=== PATIENT | female | born 1965 | race Caucasian/White ===

== ENCOUNTER 2021-03-18 15:48 | Emergency (ER) | payer BC ==
[2021-03-18] MEDS ORDERED: GI Cocktail Oral Solution 30 ML PO ONE (16:03)
--- NOTE | 2021-03-18 16:11 | EDM.PDOC ---
ED HPI GENERAL MEDICAL PROBLEM - General Chief Complaint: General Stated Complaint: CHEST PAIN Time Seen by Provider: 03/18/21 15:48 Source of Information: Reports: Patient History Limitations: Reports: No Limitations - History of Present Illness INITIAL COMMENTS - FREE TEXT/NARRATIVE: In the emergency department complaints of chest pain. Patient was sent over here from the [facility]. Patient had told the staff there that she had chest discomfort for approximately 1 month and staff stated that they wanted to have her evaluated here. Patient states that the chest pain has been intermittent throughout the past month progressively getting worse in the last 24 to 48 hours. Patient describes the pain as a sharp shooting sensation in the midsternal area radiating to the back at times. She states that it feels like [id number]. She states that she does get nauseated at times with the chest discomfort. Patient states that she has not been able to find anything to make it feel better or worse. She describes a burning sensation that does make her become nauseated. Patient denies any coronary artery disease or recent cardiac issues. Onset: Gradual Duration: Intermittent Location: Reports: Chest Quality: Reports: Burning, Sharp Improves with: Reports: None Worsens with: Reports: None Associated Symptoms: Reports: No Other Symptoms - Related Data Allergies Allergy/AdvReac Type Severity Reaction Status Date / Time meperidine [From Demerol] Allergy Severe Hives Verified 03/18/21 16:47 adhesive Allergy Rash Verified 03/18/21 16:47 amoxicillin Allergy Other Verified 03/18/21 16:47 Home Meds: Home Meds Gabapentin [Neurontin] 300 mg PO TID 04/14/16 [History] LORazepam 1 tab PO BID PRN MDD 2 04/14/16 [History] tiZANidine HCl [Tizanidine HCl] 2 mg PO TID PRN 04/14/16 [History] Past Medical History Cardiovascular History: Reports: None Respiratory History: Reports: None Gastrointestinal History: Reports: Hemorrhoids [employer] History: Reports: Endometriosis Musculoskeletal History: Reports: Osteoarthritis Other Musculoskeletal History: OA of spine with radiculopathy, cervical region. DJD of cervical spine. tenosynvitis-wrist Neurological History: Reports: None Psychiatric History: Reports: None Endocrine/Metabolic History: Reports: None Immunologic History: Reports: None Oncologic (Cancer) History: Reports: None Dermatologic History: Reports: None - Past Surgical History Head Surgeries/Procedures: Reports: None Cardiovascular Surgical History: Reports: None Respiratory Surgical History: Reports: None GI Surgical History: Reports: Hernia Repair/Other Female Surgical History: Reports: Hysterectomy Neurological Surgical History: Reports: None Musculoskeletal Surgical History: Reports: Ganglion Cyst, Other (See Below) Oncologic Surgical History: Reports: None Dermatological Surgical History: Reports: None Social & Family History - Caffeine Use Caffeine Use: Reports: Coffee ED ROS GENERAL - Review of Systems Review Of Systems: Comprehensive ROS is negative, except as noted in HPI. Constitutional: Reports: No Symptoms HEENT: Reports: No Symptoms Respiratory: Reports: No Symptoms Endocrine: Reports: No Symptoms GI/Abdominal: Reports: No Symptoms : Reports: No Symptoms Musculoskeletal: Reports: No Symptoms Skin: Reports: No Symptoms Neurological: Reports: No Symptoms Psychiatric: Reports: No Symptoms Hematologic/Lymphatic: Reports: No Symptoms Immunologic: Reports: No Symptoms ED EXAM, GENERAL - Physical Exam Exam: See Below Exam Limited By: No Limitations General Appearance: Alert, WD/WN, No Apparent Distress Head: Atraumatic, Normocephalic Neck: Normal Inspection, Supple, Non-Tender, Full Range of Motion Respiratory/Chest: No Respiratory Distress, Lungs Clear, Normal Breath Sounds Cardiovascular: Normal Peripheral Pulses, Regular Rate, Rhythm, No Edema GI/Abdominal: Normal Bowel Sounds, Soft, Non-Tender Back Exam: Normal Inspection, Full Range of Motion Extremities: Normal Inspection, Normal Range of Motion, Non-Tender Neurological: Alert, Oriented, CN II-XII Intact Psychiatric: Normal Affect, Normal Mood Skin Exam: Warm, Dry, Intact Course - Vital Signs Last Recorded V/S: Last Vital Signs Temp 36.6 C 03/18/21 16:00 Pulse 67 03/18/21 16:00 Resp 16 03/18/21 16:00 BP 160/79 H 03/18/21 16:00 Pulse Ox 98 03/18/21 16:00 - Orders/Labs/Meds Orders: Active Orders 24 hr Category Date Time Status EKG Documentation Completion [RC] STAT Care 03/18/21 15:50 Active Labs: Laboratory Tests 03/18/21 03/18/21 Range/Units 16:14 16:14 WBC 8.3 (4.0-10.0) x10^3/uL RBC 4.46 (4.00-5.50) x10^6/uL Hgb 13.7 (12.0-16.0) g/dL Hct 40.3 (33.0-47.0) % MCV 90.4 (78.0-93.0) fL MCH 30.7 (26.0-32.0) pg MCHC 34.0 (32.0-36.0) g/dL RDW Coeff of Tarik 11.9 (10.0-15.0) % Plt Count 273 (130-400) x10^3/uL Immature Gran % (Auto) 0.10 (0.00-0.43) % Neut % (Auto) 58.4 (50.0-80.0) % Lymph % (Auto) 31.0 (25.0-50.0) % [place]one % (Auto) 8.7 (2.0-11.0) % Eos % (Auto) 1.3 (0.0-4.0) % Baso % (Auto) 0.5 (0.2-1.2) % Neut # (Auto) 4.9 (1.8-7.7) x10^3/uL Lymph # (Auto) 2.6 (1.0-4.8) x10^3/uL [place]oshone # (Auto) 0.7 (0.0-0.8) x10^3/uL Eos # (Auto) 0.1 (0.0-0.5) x10^3/uL Baso # (Auto) 0.0 (0.0-0.2) x10^3/uL Immature Gran # (Auto) 0.01 (0.00-0.07) x10^3/uL Sodium 142 (136-145) mmol/L Potassium 3.9 (3.5-5.1) mmol/L Chloride 105 (98-107) mmol/L Carbon Dioxide 28 (21-32) mmol/L Anion Gap 12.9 (5-15) mmol/L BUN 17 (7-18) mg/dL Creatinine 1.0 (0.55-1.02) mg/dL Est Cr Clr Drug Dosing TNP Estimated GFR (MDRD) 57 Glucose 94 (70-99) mg/dL Calcium 8.7 (8.5-10.1) mg/dL Corrected Calcium 9.0 (8.5-10.1) mg/dL Total Bilirubin 0.7 (0.2-1.0) mg/dL AST 15 (15-37) U/L ALT 21 (14-59) U/L Alkaline Phosphatase 62 (46-116) U/L Creatine Kinase 60 (26-192) U/L Troponin I High Sens 5 (<=51) ng/L Total Protein 6.7 (6.4-8.2) g/dL Albumin 3.6 (3.4-5.0) g/dL Globulin 3.1 Albumin/Globulin Ratio 1.16 Meds: Medications Discontinued Medications Generic Name Dose Route Start Last Admin Trade Name Freq PRN Reason Stop Dose Admin Al Hydroxide/Mg Hydroxide 30 ml 03/18/21 16:03 03/18/21 16:10 Gi Cocktail Oral Solution 30 Ml PO 03/18/21 16:04 30 ml ONETIME ONE Administration Departure - Departure Time of Disposition: 17:00 Disposition: Home, Self-Care 01 Condition: Good Clinical Impression: Atypical angina - Discharge Information *PRESCRIPTION DRUG MONITORING PROGRAM REVIEWED*: Not Applicable *COPY OF PRESCRIPTION DRUG MONITORING REPORT IN PATIENT DEEDEE: Not Applicable Referrals: Vicente Garcia PA-C [Primary Care Provider] - Forms: ED Department Discharge Additional Instructions: 1. rest 2. increase your water intake 3. Continue all at home medications 4. Activity and diet as tolerated 5. Can take over the counter Tylenol for any pain or discomfort 6. Follow up with PCP if symptoms continue, return, or progress 7. Call with any questions or concerns Sepsis Event Note (ED) - Focused Exam Vital Signs: Vital Signs Temp Pulse Resp BP Pulse Ox 03/18/21 16:00 36.6 C 67 16 160/79 H 98 - My Orders Last 24 Hours: My Active Orders 03/18/21 15:50 EKG Documentation Completion [RC] STAT - Assessment/Plan Last 24 Hours: My Active Orders 03/18/21 15:50 EKG Documentation Completion [RC] STAT Assessment:: 1. chest pain Plan: 1. Labs completed in the ER. Results reviewed with the patient 2. GI cocktail given in the ER 3. Chest xray completed in ER. Results reviewed with the patient 4. EKG was completed in ER. Results reviewed with the patient- NSR with no ectopy or ST changes 5. Patient and nursing staff was updated regarding the plan of care 6. All workup today was negative. 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 Education provided the patient regarding activity, diet, rest, [id number] medication modalities, and follow-up care was provided 8. Patient and family are agreeable to the above plan of care 9. All questions and concerns were addressed with the patient and family prior to discharge
[2021-03-18 16:41] LABS: CHLORIDE,CL 105 mmol/L (98-107); SODIUM,NA 142 mmol/L (136-145)
[2021-03-18 16:47] LABS: ANION GAP 12.9 mmol/L (5-15)
--- NOTE | 2021-03-18 16:49 | CR ---
[id number] RAD/RAD Chest PA or AP 1V EXAM: SINGLE VIEW CHEST. INDICATION: CHEST PAIN COMPARISON: NO PREVIOUS SIMILAR EXAM IS AVAILABLE FINDINGS: The lungs are clear The cardiomediastinal contour is normal. There is no pneumothorax IMPRESSION: NO ACUTE PROCESS Tay Chau MD 03/18/21 [id number] Thank you for allowing us to participate in the care of your patient.
[2021-03-18 17:12] VITALS: BP 134/74; PULSE 69
== END 2021-03-18 17:25 | disposition home or self-care (01) ==
LOC: VM.ED 15:48
DX: I20.8 Other forms of angina pectoris (principal); Z88.0 Allergy status to penicillin; Z91.040 Latex allergy status; Z88.8 Allergy status to other drugs, medicaments and biological substances
CPT/HCPCS: 36415; 71045; 80053; 82550; 84484; 85025; 93005; 99284; 99285-25; A9270-GY

== ENCOUNTER 2024-04-28 23:12 | Observation (INO) | payer OTHER ==
[2024-04-28] MEDS ORDERED: Sodium Chloride 0.9% 10 ML Syringe FLUSH PRN (23:15)
[2024-04-28 23:31] LABS: BASOPHILS ABSOLUTE AUTO 0.1 x10^3/uL (0.0-0.2); BASOPHILS PERCENT AUTO 0.5 % (0.2-1.2); EOSINOPHILS ABSOLUTE AUTO 0.2 x10^3/uL (0.0-0.5); EOSINOPHILS PERCENT AUTO 1.8 % (0.0-4.0); HEMATOCRIT 42.6 % (33.0-47.0); HEMOGLOBIN 14.5 g/dL (12.0-16.0); IMMATURE GRAN ABSOLUTE AUTO 0.02 x10^3/uL (0.00-0.07); LYMPHOCYTES ABSOLUTE AUTO 3.8 x10^3/uL (1.0-4.8); LYMPHOCYTES PERCENT AUTO 37.6 % (25.0-50.0); MONOCYTES ABSOLUTE AUTO 0.5 x10^3/uL (0.0-0.8); MONOCYTES PERCENT AUTO 5.1 % (2.0-11.0); NEUTROPHILS ABSOLUTE AUTO 5.5 x10^3/uL (1.8-7.7); NEUTROPHILS PERCENT AUTO 54.8 % (50.0-80.0); PLATELET COUNT,PLT 384 x10^3/uL (130-400); RED BLOOD CELL COUNT 4.68 x10^6/uL (4.00-5.50); WHITE BLOOD CELL COUNT,WBC 10.1 x10^3/uL (4.0-10.0)
[2024-04-28 23:49] LABS: A/G RATIO 1.06; ALANINE AMINOTRANSFERASE,ALT 26 U/L (14-59); ALBUMIN 3.3 g/dL (3.4-5.0); ALKALINE PHOSPHATASE 73 U/L (46-116); ASPARTATE AMNIOTRANSFERASE,AST 15 U/L (15-37); BILIRUBIN TOTAL 0.3 mg/dL (0.2-1.0); BLOOD UREA NITROGEN,BUN 10 mg/dL (7-18); CALCIUM 8.8 mg/dL (8.5-10.1); CARBON DIOXIDE,CO2 25 mmol/L (21-32); CHLORIDE,CL 103 mmol/L (98-107); CREATININE 0.9 mg/dL (0.55-1.02); GLUCOSE RANDOM 84 mg/dL (70-99); POTASSIUM,K 3.6 mmol/L (3.5-5.1); PROTEIN TOTAL,TP 6.4 g/dL (6.4-8.2); SODIUM,NA 141 mmol/L (136-145)
[2024-04-28 23:50] LABS: ANION GAP 16.6 mmol/L (5-15); C-REACTIVE PROTEIN < 0.50 mg/dL (<=0.50); ESTIMATED GFR 74 mL/min (>=60)
[2024-04-28] MEDS: methylPREDNISolone Sodium Succinate 125 MG/2 ML SDV IVPUSH ONE (23:50)
[2024-04-28] MEDS: Racepinephrine 2.25% 0.5 ML Neb Soln NEB ONE (23:50)
[2024-04-28] MEDS: Sodium Chloride 0.9% Inhalation Soln 5 ML Neb INH PRN (23:51)
[2024-04-28] MEDS: Racepinephrine 2.25% 0.5 ML Neb Soln ONE (23:52)
[2024-04-29] MEDS ORDERED: Sodium Chloride 0.9% Inhalation Soln 5 ML Neb INH PRN (00:33)
[2024-04-29] MEDS: EPINEPHrine 1 MG/1 ML Amp SUBCUT ONE (00:34)
[2024-04-29] MEDS: Iopamidol 612 MG/ML 100 ML Bottle IVPUSH ONE (00:36)
[2024-04-29] MEDS: diphenhydrAMINE 50 MG/ML SDV IVPUSH ONE (00:37)
[2024-04-29] MEDS: Racepinephrine 2.25% 0.5 ML Neb Soln NEB ONE (00:39)
[2024-04-29] MEDS: Famotidine 20 MG/2 ML SDV IVPUSH ONE (02:03)
[2024-04-29] MEDS: Ketorolac 30 MG/ML SDV IVPUSH ONE (02:08)
[2024-04-29] MEDS ORDERED: diphenhydrAMINE 50 MG/ML SDV IVPUSH PRN (02:33)
[2024-04-29] MEDS: Sodium Chloride 0.9% 1,000 ML IV ONE (03:46)
[2024-04-29 06:16] VITALS: BP 121/71; PULSE 88
[2024-04-29] MEDS: methylPREDNISolone Sodium Succinate 125 MG/2 ML SDV IVPUSH ONE (06:33)
== END 2024-04-29 07:45 | disposition home or self-care (01) ==
LOC: VM.ED 23:12 → VM.MS 04-29 03:02
PROVIDERS: ADMIT Nurse Practitioner Family; ATTEND Nurse Practitioner Family
DX: T88.6XXA Anaphylactic reaction due to adverse effect of correct drug or medicament properly administered, initial encounter (principal); T42.8X5A Adverse effect of antiparkinsonism drugs and other central muscle-tone depressants, initial encounter; R06.03 Acute respiratory distress; R06.1 Stridor; Z88.0 Allergy status to penicillin; Z91.040 Latex allergy status; Z88.8 Allergy status to other drugs, medicaments and biological substances
CPT/HCPCS: 36415; 70491; 71046; 80053; 84484; 85025; 86140; 87428-QW; 87651-QW; 94640; 96372; 96374; 96375; 96376; 99236; 99285-25; G0378; J0171; J1200; J1885; J2919; J3490; J7030; Q9967